=== PATIENT | male | born 1990 | race Asian ===

== ENCOUNTER 2019-03-14 07:24 | Emergency (ER) | payer MEDICAID ==
[~2019-03-14] VITALS: Ht 180.3 cm; Wt 61.4 kg
[2019-03-14 08:43] VITALS: BP 124/88
[2019-03-14] MEDS ORDERED: METHADONE HCL 10 MG TABLET PO ONE (10:00)
== END 2019-03-14 10:31 | disposition home or self-care (01) ==
LOC: EMS 07:26
DX: F11.20 Opioid dependence, uncomplicated (principal); F15.90 Other stimulant use, unspecified, uncomplicated; F17.210 Nicotine dependence, cigarettes, uncomplicated

== ENCOUNTER 2019-03-15 10:41 | Emergency (ER) | payer MEDICAID ==
[~2019-03-15] VITALS: Ht 180.3 cm; Wt 72.7 kg
[2019-03-15 10:52] VITALS: BP 137/95
[2019-03-15] MEDS ORDERED: CloNIDine HCL 0.1 MG TABLET PO ONE (13:15)
[2019-03-15] MEDS ORDERED: IBUPROFEN 600 MG TABLET PO ONE (13:15)
== END 2019-03-15 13:00 | disposition left against medical advice (07) ==
LOC: EMS 10:42
DX: F11.23 Opioid dependence with withdrawal (principal); F17.210 Nicotine dependence, cigarettes, uncomplicated; F15.90 Other stimulant use, unspecified, uncomplicated

== ENCOUNTER 2019-04-25 20:05 | Emergency (ER) | payer MEDICAID | END 2019-04-25 20:15 | disposition left against medical advice (07) | LOC: EMS 20:05 | DX: R07.9 Chest pain, unspecified (principal); Z53.21 Procedure and treatment not carried out due to patient leaving prior to being seen by health care provider ==